=== PATIENT | male | born 1980 | race Asian ===

== ENCOUNTER → 2018-10-26 | Day surgery (SDC) | payer OTHER ==
[2018-10-24 15:26] LABS: BASOPHILS % 0.5 % (0.0-1.0); EOSINOPHILS # (AUTO) 0.2 (0.0-0.4); EOSINOPHILS % 2.8 % (0.0-6.0); HEMATOCRIT 45.3 % (38.2-49.6); HEMOGLOBIN 15.4 g/dL (14.0-18.0); LYMPHOCYTES # (AUTO) 1.9 (1.0-3.2); LYMPHOCYTES % 30.4 % (18.0-39.1); MEAN CORPUSCULAR HEMOGLOBIN 30.7 pg (28-32); MEAN CORPUSCULAR VOLUME 90.2 fL (81-99); MONOCYTES # (AUTO) 0.7 (0.2-0.8); MONOCYTES % 11.7 % (4.4-11.3); NEUTROPHILS # (AUTO) 3.4 (2.1-6.9); NEUTROPHILS % 54.1 % (38.7-80.0); PLATELET COUNT 278 x10e3/uL (140-360); RED BLOOD COUNT 5.02 x10e6/uL (4.3-5.7); RED CELL DISTRIBUTION WIDTH 11.9 % (11.7-14.4)
[2018-10-24 15:53] LABS: ALANINE AMINOTRANSFERASE 69 IU/L (0-55); ALBUMIN/GLOBULIN RATIO 1.2 (0.8-2.0); ALKALINE PHOSPHATASE 80 IU/L (40-150); ANION GAP 10.7 mmol/L (8-16); BLOOD UREA NITROGEN 14 mg/dL (7-26); BUN/CREATININE RATIO 14 (6-25); CALCIUM 9.5 mg/dL (8.4-10.2); CARBON DIOXIDE 28 mmol/L (22-29); CHLORIDE 102 mmol/L (98-107); EST GLOMERULAR FILTRATION RATE > 60 ML/MIN (60-); GLUCOSE 106 mg/dL (74-118); POTASSIUM 3.7 mmol/L (3.5-5.1); SODIUM 137 mmol/L (136-145)
--- NOTE | 2018-10-24 15:53 | Diagnostic Imaging Report ---
Abdomen, 2 views. History: Flank pain. Findings: Calcified ureteral stone with a maximal measurement of 7.6 mm is noted between the transverse process of L3 and L4 on the right side. The intestinal gas pattern is nonobstructive. There no masses. The osseous structures are intact. IMPRESSION: Right ureteral stone. Signed by: Dr. Gasper Aguilar DO on 10/24/2018 3:49 PM
[~2018-10-26] MED LIST: ATORVASTATIN CA20 MG PO; B&O 60MG R/S 60 MG SUPP PR ONE; CEFTRIAXONE SOD 1 GM/NS 50 ML 50 ML IV ONE; DEXAMETHASONE SOD PHOS INJ 4 MG/ML VIAL ONE; FENTANYL CITRATE/PF 100MCG/2 ML INJ ONE; IOPAMIDOL 610MG/1ML 300 MG/ML VIAL IV ONE; LIDOCAINE HCL 2% LOCAL INJ 5 ML SDV VIAL INJ ONE; LOSARTAN POTASS25 MG PO; MIDAZOLAM HCL 2 MG/2 ML VIAL ONE; OMEPRAZOLE40 MG PO; ONDANSETRON HCL INJ 2MG/ML 2ML 2 MG/ML VIAL ONE; PROPOFOL IV EMULSION 10 MG/ML 20 ML VIAL ONE; SEVOFLURANE INHAL SOLN 250 ML PEN BTL ONE; SUCRALFATE1 GM PO
--- OUTSIDE RECORDS SUMMARY | 2018-10-26 05:16 | XMS REPORT ---
Author Author [facility] Address Unknown Phone Unavailable Care Team Providers Care Information Systems Consultant Name Role Phone YOU TALAMANTES Unavailable Unavailable Payers Payer Name Policy Type Policy Number Effective Date Expiration Date Problems This patient has no known problems. Allergies, Adverse Reactions, Alerts Allergy Name Allergy Type Status Severity Reaction(s) Onset Date Inactive Date Treating Clinician Comments No Known Allergies DA Active U 2017-04-14 00:00:00 Medications This patient has no known medications. Encounters Start Date/Time End Date/Time Encounter Type Admission Type Attending Clinicians Care Facility Care Department Encounter ID 2018-09-02 13:58:00 2018-09-02 13:58:00 Emergency E [id number] Results Test Description Test Time Test Comments Text Results Atomic Results Result Comments ABDOMEN-1VIEW (KUB) 2018-10-24 15:47:00 [place] [address] Patient Name: JERI NIX MR #: [id number] : 1980 Age/Sex: 38/M Req #: [id number] Adm Physician: Ordered by: YOU TALAMANTES MD Report #: [id number] Location: OR Room/Bed: Procedure: [id number] DX/ABDOMEN-1VIEW (KUB) Exam Date: 10/24/18 Exam Time: 1515 REPORT STATUS: Signed Abdomen, 2 views. History: Flank pain. Findings: Calcified ureteral stone with a maximal measurement of 7.6 mm is noted between the transverse process of L3 and L4 on the right side. The intestinal gas pattern is nonobstructive. There no masses. The osseous structures are intact. IMPRESSION: Right ureteral stone. Signed by: Dr. Gus Aguilar DO on 10/24/2018 3:49 PM Dictated By: GUS AGUILAR DO 48 Transcribed By: ADITYA on 10/24/181548 COPY TO: YOU TALAMANTES MD SURGICAL SPECIMENS 2018-09-16 14:08:00 RUN DATE: 09/16/18 [facility] *LIVE* PAGE 1 RUN TIME: 1408 Specimen Inquiry RUN USER: INTERFACE PATIENT: JERI NIX LOC: RadhaRODRIGO #: [id number] AGE/SX: 38/M ROOM: RE09/14/18REG DR: Renetta Li MD : 80 BED: DIS: STATUS: [facility] TLOC: SPEC #: [id number] RECD: 09/14/18 STATUS: MEGAN FITZGERALD #: [id number] ALCIDES: 09/14/[address]: Renetta Li MD ENTERED: 09/15/18 SP TYPE: SURG SPEC OTHR DR: Osmany Butterfield MD ORDERED: LEVEL 4 CODES: [id number] - STOMACH, NOS COPIES TO: Renetta Li MD [address] [place] [address] [place] [address] [facility] [address] [place], [place] [id number] PROCEDURES: LEVEL 4 (Incomplete) TISSUES: 1. STOMACH, NOS - Stomach, bx. FINAL DIAGNOSIS Stomach, bx.: Mild chronic gastritis, no Helicobacter organisms seen. GROSS AND MICROSCOPIC GROSS EXAMINATION: Received is/are the specimen/s designated with the appropriate dimensions and block designation: 1. Stomach, bx.: 5 segments of pink-smith tissue, measuring up to 0.4 cm. in greatest dimension each. MICROSCOPIC EXAMINATION: Sections of the "Stomach, bx." reveal changes of chronic gastritis. The lamina propria contains a mild inflammatory infiltrate. The Alcian blue/PAS stain does not show goblet cell metaplasia. The immunostain for Helicobacter organisms is negative. (When special stains have been reviewed, the appropriate positive/negative controls have been reviewed and are appropriately positive/negative). CONTINUED ON NEXT PAGE RUN DATE: 09/16/18 [facility] *LIVE* P AGE 2 RUN TIME: 1408 Specimen Inquiry RUN USER: INTERFACE SPEC #: [id number] PATIENT: JERI NIX #[id number] (Continued) POST-OP DIAGNOSIS Bloating syndrome, on awake counselor, evaluate for H. pylori PRE-OP DIAGNOSIS BMI=25 (overweight), dietary surviellance, epigastric abdominal pain Signed SIGNATURE ON FILE Peg Romo MD 09/16/18 1408 END OF REPORT
[2018-10-26 09:10] VITALS: BP 120/94
--- NOTE | 2018-12-08 21:47 | Operative Report ---
DATE OF PROCEDURE: 10/26/2018 SURGEON: Connor Hinojosa MD PREOPERATIVE DIAGNOSES: 1. Right ureterolithiasis. 2. Right hydronephrosis due to stone. 3. Urinary tract infection. POSTOPERATIVE DIAGNOSES: 1. Right ureterolithiasis. 2. Right hydronephrosis due to stone. 3. Urinary tract infection. OPERATIONS PERFORMED: 1. Right-sided extracorporeal shockwave lithotripsy (separate staged procedure performed from separate approach for the urolithiasis). 2. Cystourethroscopy with bilateral ureteral catheterization and retrograde ureteropyelography (separately performed for the urinary tract infections). 3. Interpretation of retrograde ureteropyelography. 4. Supervision of fluoroscopy, no radiologist present. 5. Cystourethroscopy with insertion of right indwelling ureteral stent (separately procedure performed to relieve the hydronephrosis). ANESTHESIA: General. COMPLICATIONS: None. CLINICAL SUMMARY: Willy Puckett is a 38-year-old man with the above preoperative diagnoses he is brought for the above procedures. He is aware of the risks of bleeding, infection, injury to adjacent structures, need for additional procedures, and elected to proceed. OPERATIVE PROCEDURE IN DETAIL: Informed consent was verified. Willy Puckett was properly identified, taken to the operating room, and placed on the lithotripsy table in supine position. Anesthesia was uneventfully begun. The patient's 7 mm stone was localized with biplanar fluoroscopy. A total of 4000 shocks were delivered with some degree of fragmentation noted. The patient was then carefully and gently repositioned in dorsal lithotomy position with all pressure points well padded. His genitalia were prepared and draped in usual sterile fashion. The cystoscope sheath with the visual obturator in place was atraumatically inserted into the patient's urethra, it was guided down the unremarkable urethra to the normal sphincteric region. We pass the normal prostate and entered the patient's bladder. Panendoscopy revealed no suspicious mucosal lesions, no tumors, no stones, no diverticula. Mild erythema was noted. A ureteral catheter was used to cannulate each ureter and retrograde ureteral pyelograms were performed. With cystoscopic fluoroscopic guidance, a right-sided indwelling ureteral stent was then placed, it was coiled in the patient's kidneys as well as the patient's bladder. The retaining suture was cut short. Interpretation of retrograde ureteropyelography contrast was instilled in retrograde fashion bilaterally. The left side was unremarkable; there were no tumors, no stones, no diverticula; Unobstructed drainage was observed fluoroscopically. The right side exhibited a filling defect corresponding to the stone noted at our lithotripsy procedure proximal to that there was hydroureteronephrosis. The stent was in good position, coiled the patient's kidney as well as the patient's bladder at the end of the case. The patient's bladder was drained and cystoscope was withdrawn. Belladonna and opium suppository were placed revealing a 20 g prostate, smooth, nonfluctuant without any nodules. The patient was then uneventfully reversed from anesthesia and taken to recovery room in stable condition. Explicit postop instructions were given and we will plan on returning the patient to the operating room for right ureteroscopy with laser availability and stent removal. MD COLEMAN Rivera/RAMANA /[id number]
== END | disposition home or self-care (01) ==
LOC: OR 05:00
PROVIDERS: ATTEND Urology
DX: N13.2 Hydronephrosis with renal and ureteral calculous obstruction (principal); N39.0 Urinary tract infection, site not specified; I10 Essential (primary) hypertension; K27.9 Peptic ulcer, site unspecified, unspecified as acute or chronic, without hemorrhage or perforation; K21.9 Gastro-esophageal reflux disease without esophagitis; E78.5 Hyperlipidemia, unspecified; B19.10 Unspecified viral hepatitis B without hepatic coma; Z01.810 Encounter for preprocedural cardiovascular examination; Z01.812 Encounter for preprocedural laboratory examination
CPT/HCPCS: 36415; 50590; 74018; 80053; 83970; 84550; 85025; 87086; 93005; C1758; C1874; J0696; J1100; J2001; J2250; J2405; J3010

== ENCOUNTER → 2018-11-09 | Day surgery (SDC) | payer OTHER ==
[~2018-11-09] MED LIST changes: +HYDRALAZINE HCL 20 MG/ML VIAL ONE
--- NOTE | 2018-11-09 11:05 | Diagnostic Imaging Report ---
Exam: KUB - 1 views Clinical History: Renal calculi Comparison: Abdominal radiograph of 10/24/2018 Findings: There has been interval placement of a right nephroureteral stent. Again seen is a 7 mm calcific density projecting over the course of the right ureter, not significant changed compared to the prior study of 10/24/2018. No new calculi identified. Phleboliths in the pelvis. Nonobstructive bowel gas pattern. The bones and soft tissues appear unremarkable. Impression: Interval placement of right nephroureteral stent. Unchanged appearance of right ureteral calculus. No new calculi identified. Signed by: Yue Goldman MD on 11/09/2018 11:02 AM
[2018-11-09 14:25] VITALS: BP 130/84
--- NOTE | 2018-12-05 02:56 | Operative Report ---
DATE OF PROCEDURE: 11/09/2018 SURGEON: Connor Hinojosa MD PREOPERATIVE DIAGNOSES: 1. Right ureterolithiasis. 2. Right indwelling ureteral stent (foreign body). POSTOPERATIVE DIAGNOSES: 1. Right ureterolithiasis. 2. Right indwelling ureteral stent (foreign body). OPERATION PERFORMED: Note, these were all staged procedures as part of multi-staged and multi-step process in managing the patient's urolithiasis. 1. Cystourethroscopy with complicated removal of right indwelling ureteral stent (separate procedure performed for the diagnosis of the stent done with separate scope). 2. Right ureteroscopy with holmium laser lithotripsy, stone extraction, and insertion of stent (separate performed for the residual ureterolithiasis). 3. Radiological services with supervision and interpretation of ureteroscopy. 4. Interpretation of retrograde ureteropyelography. 5. Supervision of fluoroscopy, no radiologist present. ANESTHESIA: General. COMPLICATIONS: None. CLINICAL SUMMARY: Willy Puckett is a 38-year-old man, who had an obstructing right ureteral stone. He underwent ESWL and stent placement. He was brought for the above procedures. He is aware of the risks of bleeding, infection, injury to adjacent structures, need for additional procedures, and elected to proceed. The patient did pass some sand following his prior surgery. OPERATIVE PROCEDURE IN DETAIL: Informed consent was verified. Willy Puckett was properly identified, taken to the operating room and placed on the cystoscopy table in supine position. Anesthesia was uneventfully begun. The patient was then carefully and gently repositioned in the dorsal lithotomy position with all pressure points well padded. His genitalia were prepared and draped in usual sterile fashion. The cystoscope sheath with the visual obturator in place was atraumatically inserted the patient's urethra, was guided down the unremarkable urethra through the normal sphincteric region, through the normal prostate bed into the patient's bladder. We identified a stent emerging from the right ureteral orifice. There was mild mucosal erythema around the stent. No suspicious mucosal lesions, no stones, and no tumors were identified. A guidewire was then placed alongside the stent and guided at the level of the patient's kidney. The stent was then grasped, completely removed, and then discarded. A semi-rigid ureteroscope was then placed alongside the guidewire and guided up into the patient's right ureter. It was a straight shot until we reached the patient's stone. The stone was impacted. There was mucosal erythema around it. Despite having performed lithotripsy, there was a rather significant amount of obstructing stone burden present. Holmium laser lithotripsy was then performed in order to pulverize the stone into multiple smaller fragments. A Nitinol tipless basket was then utilized in multiple passes to extract stone fragments. A secondary guidewire was left in place once only fine sand remained. Flexible ureteroscope was then placed over the secondary guidewire and guided to the level of the patient's kidney. Panendoscopy revealed Gian's plaques, but no tumors, no stones, and no suspicious lesions within the right kidney. With cystoscopic fluoroscopic guidance, a right-sided indwelling ureteral stent was then placed. It was coiled in the patient's kidney as well as the patient's bladder. The retaining suture was cut short. The patient was then uneventfully reversed from anesthesia and taken to recovery room in stable condition. There were no complications to the procedure. He tolerated the procedure well. Explicit postoperative instructions were given. We will plan on returning the patient to the operating room in approximately 1 month to remove his stent, perform ureteroscopy, and hopefully render the patient stent free and stone free. Ongoing Urological followup is must to ensure in order to minimize the risk of stone recurrence. Connor Hinojosa MD [place]/MODL /[id number]
== END | disposition home or self-care (01) ==
LOC: OR 09:19
PROVIDERS: ATTEND Urology
DX: N20.1 Calculus of ureter (principal); Z46.6 Encounter for fitting and adjustment of urinary device; N28.89 Other specified disorders of kidney and ureter
CPT/HCPCS: 52356; 74018; 74420; 88300; C1874; J0360; J0696; J1100; J2001; J2250; J2405; J3010

== ENCOUNTER → 2018-12-12 | Day surgery (SDC) | payer OTHER ==
[~2018-12-12] MED LIST changes: +DIPHENHYDRAMINE HCL INJ 50 MG/ML VIAL ONE; +GENTAMICIN 80MG/NS 100 ML 200 ML IV ONE; -HYDRALAZINE HCL 20 MG/ML VIAL ONE
[2018-12-12 17:15] VITALS: BP 143/96
--- NOTE | 2018-12-13 09:42 | Diagnostic Imaging Report ---
Fluoroscopy, less than 1 hour History:Retrograde pyelogram Comparison: none Findings: Fluoroscopic assistance was provided during retrograde pyelogram. Fluoroscopic images taken were interpreted by the referring clinician. Please see separate procedure note for full details. Total Fluoroscopy time: 22 seconds Number of fluoroscopic images obtained: 5 Impression: Fluoroscopy assistance as described above. Signed by: Sebastián Steinberg MD on 12/13/2018 7:49 AM
--- NOTE | 2019-02-03 05:04 | Operative Report ---
DATE OF PROCEDURE: 12/12/2018 SURGEON: Connor Hinojosa MD PREOPERATIVE DIAGNOSES: 1. Right ureterolithiasis. 2. Right indwelling ureteral stent. POSTOPERATIVE DIAGNOSES: 1. Right ureterolithiasis. 2. Right indwelling ureteral stent. OPERATIONS PERFORMED: Note, these were all staged procedures as part of multistaged, multistep process in managing the patient's urolithiasis. 1. Cystourethroscopy with complicated removal of right indwelling ureteral stent (separate procedure performed with separate scope for the diagnosis of stent). 2. Right ureteroscopy (separate procedure performed to evaluate for any residual urolithiasis). 3. Radiological services for supervision and interpretation of ureteroscopy. 4. Interpretation of retrograde ureteropyelography. 5. Supervision of fluoroscopy, no radiologist present. ANESTHESIA: General. COMPLICATIONS: None. CLINICAL SUMMARY: Willy Puckett is a 38-year-old man, who underwent a stone management procedure, he has a stent in place. He was brought to the operating room in hopes of rendering him stent free and stone free. He is aware of the risks of bleeding, infection, injury to adjacent structures, need for additional procedures and elected to proceed. OPERATIVE PROCEDURE IN DETAIL: Informed consent was verified. Willy Puckett was properly identified, and taken to the operating room, placed on the cystoscopy table in supine position. Anesthesia was uneventfully begun. The patient was then carefully and gently repositioned in the dorsal lithotomy position with all pressure points well padded. His genitalia were prepared and draped in usual sterile fashion. The cystoscope sheath with a visual obturator in place was atraumatically inserted into the patient's urethra, was guided unremarkable urethra though normal sphincteric region through the prostate bed and into the patient's bladder. We identified a stent emerging from the right ureteral orifice. There was mild erythema around the stent. There were no suspicious mucosal lesions. There were no stones. A guidewire was then placed alongside the stent and guided to the level of the patient's kidney. The stent was then grasped, completely removed and discarded. A semi-rigid ureteroscope was then placed alongside the guidewire and guided down the urethra and up into the distal right ureter. Contrast was injected. No stones were visualized. There were no tumors, there were no strictures. A flexible ureteroscope was then placed over the guidewire and guided to the level of the patient's kidney. Panendoscopy of the intrarenal collecting system revealed Gian's plaques, but there were no tumors, there were no stones, there were no suspicious mucosal lesions. We carefully examined the ureter. As we exited, it exhibited no stones, no strictures, no mucosal lesions. Interpretation of retrograde ureteropyelography contrast was instilled in a retrograde fashion via the ureteroscope. There was mild fullness of both upper collecting systems, but calices were sharp and delicate and unobstructed drainage was observed fluoroscopically. There were no obvious mucosal lesions and there were no filling defects. The patient's bladder was then drained, cystoscope was withdrawn. A belladonna and opium suppositories were placed revealing a 15 g prostate, that is smooth, non-fluctuant without any nodules. The patient was then uneventfully reversed from anesthesia and taken to recovery room in stable condition. Explicit postop instructions were given. We will plan on having the patient followup in the office in approximately 1 month. Also metabolic stone workup is indicated and the patient was notified of this. Connor Hinojosa MD [place]/RAMANA /[id number]
== END | disposition home or self-care (01) ==
LOC: OR 12:50
PROVIDERS: ATTEND Urology
DX: N20.1 Calculus of ureter (principal); Z46.6 Encounter for fitting and adjustment of urinary device; N28.89 Other specified disorders of kidney and ureter; R35.1 Nocturia; N13.30 Unspecified hydronephrosis; N39.0 Urinary tract infection, site not specified; R39.12 Poor urinary stream; R03.0 Elevated blood-pressure reading, without diagnosis of hypertension; E78.6 Lipoprotein deficiency; K21.9 Gastro-esophageal reflux disease without esophagitis
CPT/HCPCS: 74420; J0696; J1100; J1200; J1580; J2001; J2250; J2405; J3010